=== PATIENT | male | born 1995 | race Caucasian/White ===

== ENCOUNTER 2025-10-05 08:49 | Outpatient (CLI) | payer OTHER, SELFPAY ==
--- NOTE | 2025-10-05 | ECHO_ITS ---
Patient Info Name: Don Bennett Age: 30 years : 1995 Gender: Male Ht: 71 in Wt: 196 lbs BSA: 2.13 m2 HR: 70 bpm BP: 137 / 101 mmHg Heart Rhythm: Sinus Rhythm Technical Quality: Good Exam Date: 10/05/2025 9:10 AM Patient Status: O Admit Date: 10/05/2025 Exam Type: CA echo doppler color flow Complete two-dimensional, color flow and Doppler transthoracic echocardiogram is performed. Operational Risk Consultant: Nena Nath Summary 1. Complete two-dimensional, color flow and Doppler transthoracic echocardiogram is performed. 2. Unremarkable 2D M-mode echocardiogram. 3. 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 Left Ventricle Left ventricular chamber dimension is normal. Left ventricular systolic function is normal, estimated at 50-55. The left ventricular diastolic function is normal. Right Ventricle Right ventricular chamber dimension is normal. Left Atria Left atrial chamber dimension is normal. Right Atria Right atrial chamber dimension is normal. Aortic Valve The aortic valve is normal. Pulmonic Valve The pulmonic valve is normal. Mitral Valve The mitral valve has normal leaflets. Tricuspid Valve The tricuspid valve leaflets are normal. Pericardium/Pleural The pericardium appears normal. Aorta The aortic root size at the sinus of Valsalva is normal. Left Ventricular Outflow Tract Name Value Normal LVOT 2D LVOT Diameter 1.9 cm LVOT Doppler LVOT Peak Velocity 109 cm/s LVOT Peak Gradient 5 mmHg LVOT Mean Gradient 3 mmHg LVOT VTI 22 cm LVOT VTI/AV VTI Ratio 0.8 LVOT Stroke Volume 65 ml LVOT CO 4.3 l/min LVOT CI 2.0 l/min/m2 Pulmonic Valve Name Value Normal RVOT Doppler RVOT Peak Velocity 75 cm/s RVOT Peak Gradient 2 mmHg PV Doppler PV Peak Velocity 96 cm/s PV Peak Gradient 4 mmHg Mitral Valve Name Value Normal MV Diastolic Function MV E Peak Velocity 94 cm/s MV A Peak Velocity 48 cm/s MV E/A 2.0 MV Decel Time (PW) 198 ms Tricuspid Valve Name Value Normal TV Regurgitation Doppler TR Peak Velocity 197 cm/s TR Peak Gradient 16 mmHg Estimated PAP/RSVP RA Pressure 10 mmHg <=5 PA Systolic Pressure 26 mmHg <36 RV Systolic Pressure 26 mmHg <36 Aorta Name Value Normal Ascending Aorta Ao Root Diameter (MM) 2.9 cm Ao Root Diam Index (MM) 1.4 cm/m2 Aortic Valve Name Value Normal AV Doppler AV Peak Velocity 121 cm/s AV Peak Gradient 6 mmHg AV Mean Gradient 4 mmHg AV VTI 26 cm AV Area (Cont Eq VTI) 2.5 cm2 >=3.0 AV Area (Cont Eq Sincere) 2.7 cm2 AV DI (Sincere) 0.89 AV Regurgitation 2D LVOT Area 3.0 cm2 Ventricles Name Value Normal LV Dimensions 2D/MM IVS Diastolic Thickness (2D) 0.9 cm 0.6-1.0 IVS Diastole Thickness (MM) 0.9 cm 0.6-1.0 LVID Diastole (2D) 4.7 cm 4.2-5.8 LVID Diastole (MM) 5.7 cm 4.2-5.8 LVIW Diastolic Thickness (2D) 0.8 cm 0.6-1.0 LVIW Diastolic Thickness (MM) 0.6 cm 0.6-1.0 LVID Systole (2D) 3.4 cm 2.5-4.0 LVID Systole (MM) 3.8 cm 2.5-4.0 LVOT Diameter 1.9 cm LV Mass (2D Cubed) 134.17 g 88.00-224.00 LV Mass Index (2D Cubed) 63 g/m2 49-115 Relative Wall Thickness (2D) 0.36 <=0.42 LV Mass (MM Cubed) 144.79 g 88.00-224.00 LV Mass Index (MM Cubed) 68 g/m2 49-115 Relative Wall Thickness (MM) 0.20 LV Fractional Shortening/Ejection Fraction 2D/MM LV Fractional Shortening (2D) 28 % 25-43 LV Fractional Shortening (MM) 34 % 25-43 LV EF (MM Teichholz) 62 % LV EF (2D Teichholz) 55 % LV Diastolic Volume (4C MOD) 83 ml LV EF (4C MOD) 59 % LV Diastolic Volume (2C MOD) 88 ml LV EF (2C MOD) 53 % LV Diastolic Volume (BP MOD) 86 ml 62-150 LV Diastolic Volume Index (BP MOD) 40 ml/m2 34-74 LV Systolic Volume (BP MOD) 38 ml 21-61 LV Systolic Volume Index (BP MOD) 18 ml/m2 11-31 LV EF (BP MOD) 55 % 52-72 LV Diastolic Length (4C) 8.4 cm LV Systolic Length (4C) 7.6 cm LV Stroke Volume (4C MOD) 49 ml Atria Name Value Normal LA Dimensions LA Dimension (MM) 2.9 cm 3.0-4.0 LA Volume (4C A-L) 25 ml LA Volume (BP A-L) 29 ml RA Dimensions RA Systolic Major Kingman Length (4C) 4.1 cm 2.1-2.7 RA Area (4C) 10.9 cm2 <=18.0 Report Signatures
--- OUTSIDE RECORDS SUMMARY | 2025-10-05 09:41 | XMS_ITS | Clinical Summary ---
Author Organization [facility] lin Address [address] [facility] [place] [address] Care Team Providers Care Soda Jerker Name Role Phone No, Pcp AP OPERATOR Primary Care Provider Unavailabl e Allergies No known active allergies Medications No known medications Social History Tobacco Use Types Packs/Day Years Used Date Smoking Tobacco: Never Smokeless Tobacco: Never Sex and Gender Information Value Date Recorded Sex Assigned at Not on file Legal Sex Male 4:25 PM EST Gender Identity Not on file Sexual Orientation Not on file Last Filed Vital Signs Vital Sign Reading Time Taken Comments Blood Pressure 122/78 01/28/2018 8:59 AM CDT Pulse 71 01/28/2018 8:59 AM CDT Temperature 36.9 C (98.4 F) 01/28/2018 8:59 AM CDT Respiratory Rate 14 01/28/2018 8:59 AM CDT Oxygen Saturation 98% 01/28/2018 8:59 AM CDT Inhaled Oxygen Concentration - - Weight 81.2 kg (179 lb) 01/28/2018 8:59 AM CDT Height 181.6 cm (5' 11.5) 01/28/2018 8:59 AM CD T Body Mass Index 24.62 01/28/2018 8:59 AM CDT Plan of Treatment Not on file Medical Devices Not on file Care Teams Soda Jerker Relationship Specialty Start Date End Date No, Pcp, AP OPERATOR N/A Do not use PCP - General 12/13/16
== END 2025-10-05 08:50 | disposition home or self-care (01) ==
DX: R93.1 Abnormal findings on diagnostic imaging of heart and coronary circulation (principal); I10 Essential (primary) hypertension
CPT/HCPCS: 93306

== ENCOUNTER 2025-10-07 08:56 | Outpatient (CLI) | payer OTHER, SELFPAY ==
--- NOTE | ~2025-10-07 | US_ITS ---
EXAMINATION: US retroperitoneal duplex ltd DATE: 10/07/2025 10:30 INDICATION: Essential hypertension TECHNIQUE: Multiple grayscale, color Doppler, and pulsed Doppler images of the kidneys and renal arteries were obtained. COMPARISON: None. FINDINGS: Normal caliber abdominal aorta with normal triphasic arterial waveforms. The aorta peak systolic velocity is 83 cm/s. The right renal artery peak systolic velocity is 101 cm/s in the proximal segment, 119 cm/s in the mid segment, and 55 cm/s in the distal segment. The left renal artery peak systolic velocity is 97 cm/s in the proximal segment, 66 cm/s in the mid segment, and 80 cm/s in the distal segment. IMPRESSION: 1. No Doppler evidence of renal artery stenosis. Reviewed, dictated and finalized at location [facility]
--- OUTSIDE RECORDS SUMMARY | 2025-10-07 09:16 | XMS_ITS | Patient Health Record ---
Author Organization [facility] Address [address] [place] [address] Care Team Providers Care Cycle Repairer Name Role Phone Marisabel Crawley Unavailable [phone] Allergies No Known Allergies Reason For Referral No Information Medications Medication SIG (Take, Route, Frequency, Duration) Notes Start Date End Date Status HYDROcodone-Acetaminophe n 5-325 MG 1-2 tablets Orally every 6 hrs as needed for pain post surgery 12/05/2023 Not-Taking tiZANidine HCl 2 MG 1 tablet as needed Orally every 6 hours as needed for muscle spasms or pain after surgery 12/05/2023 Not-Taking Polyethylene Glycol 3350 17 GM 1 packet mixed with 8 ounces of fluid Orally twice a day for constipation after surgery 12/05/2023 Not-Taking Problems Problem Type SNOMED Code ICD Code Onset Dates Problem Status W/U Status Risk Notes Problem Femur (09107398) Femur (M87.859) Active confirm ed Problem Knee pain (7887236789) Knee pain (M25.569) Active confirmed Problem Pain of right knee region (finding) (712860797591437) Right knee pain, unspecified chronicity (M25.561) Active confirmed Problem Internal prosthetic device causing pain (186111382) Painful orthopaedic hardware (T84.84XA) Active confirmed Problem Open supracondylar fracture of femur (10216236) Supracondyl Fx Femur (821.33) 3 Active confirmed Problem Open fracture of patella (036598306) Fracture Patella Ope (822.1) 3 Active confirmed Plan Of Treatment No Information Insurance Providers Payer Name Payer Address Payer Phone Subscriber Number Group Number Insured Name Patient Relationship to Insured Coverage Start Date Coverage End Date [facility] [employer] [address] [address] [place] [address] [id number] Don Bennett Self - patient is the insured 3 4 [facility] [address] [address] [place] [address] [id number] Don Bennett Self - patient is the insured 4 Medical (General) History Surgical History Surgery Date(Month/Year) Orthopedic History of orthopedic surgery right leg Hand surgery Hand surgery right Broken Femur dr Crawley 08/16/2013 R knee implant removal Denisa 12/06/23
--- OUTSIDE RECORDS SUMMARY | 2025-10-07 09:16 | XMS_ITS | Clinical Summary ---
Author Organization [facility] lin Address [address] [facility] [place] [address] Care Team Providers Care Urogynaecologist Name Role Phone No, Pcp OFFSET PLATE PREPARATION SUPERVISOR Primary Care Provider Unavailabl e Allergies No [...] Medical Devices Not on file Care Teams Urogynaecologist Relationship Specialty Start Date End Date No, Pcp, OFFSET PLATE PREPARATION SUPERVISOR N/A Do not use PCP - General 12/13/16
== END 2025-10-07 08:57 | disposition home or self-care (01) ==
DX: I10 Essential (primary) hypertension (principal)
CPT/HCPCS: 93976